=== PATIENT | female | born 1985 | race Caucasian/White ===

== ENCOUNTER 2025-02-21 18:40 | Emergency (ER) | payer MEDICAID, SELFPAY ==
[2025-02-21 19:46] VITALS: BP 102/66; PULSE 83; RESP 16; TEMP 36.8; O2SAT 100
--- NOTE | 2025-02-21 19:46 | EDNOTE_ITS ---
ED Dental RME/HPI General Chief complaint: Dental/Oral/Throat Stated complaint: Tooth infection Time Seen by Provider: 02/21/25 19:45 Arrival date/time: 02/21/25 18:40 RME / HPI RME / HPI Narrative: This section includes all my notes and documentations, including HPI, PE, and ED course. Vlad Spring MD HPI: 39 y/o female presents to ED c/o left-sided dental pain and swelling x several days. Denies any fever. No other complaints. ROS: All negative except as documented in HPI. Physical Exam: General: Alert and oriented. Eyes: Conjunctivae and lids clear. ENT: No nasal congestion. Pharynx normal. TM normal bilaterally. In the mouth, diffuse dental caries noted with left gum significantly edematous with erythema and tenderness. No fluctuant mass palpable. Neck: Supple. Lungs: No respiratory distress. Skin: Warm and dry. Neuro: Alert and oriented X 3. Made clinical diagnosis of infected dental caries. Treatment here included Tylenol with Codeine, Prednisone, Cleocin. Recommended outpatient dental care. Based on my best medical judgment, made decision no further evaluation or treatment indicated at this time. Patient understands and agrees to the discharge instructions customized and printed, see below. Discharge Instructions from Dr. Spring: --After evaluation, your dental pain is due to an underlying infection from many cavities. --Take clindamycin to help kill the germs causing your infection.? Unless we treat the underlying infection, pain medications won?t work.?? --Ibuprofen as needed.? Will work better with the antibiotics.? --Apply Lidocaine as needed.? Soak Lidocaine in a gauze and apply in the area of pain for 15 minutes to help the pain for a couple of hours.?? --Most importantly, see a dentist of your choice on 04/04/23 for definitive treatment you need not available in the ER.? You will need to call dental offices in all surrounding towns to find a dentist who can see you and treat you right away.? ?Seek immediate medical care with fever or with any concerns. Vlad Spring MD Related Data Previous Rx's ?Medication ?Instructions ?Recorded Hydrocodone/Acetaminophen * (NORCO 1 tab PO Q4H PRN PA IN #10 tabs 10/10/ 5/325 *) acetaminophen 300 mg-codeine 30 mg 2 tab PO Q8H PRN pa in #20 tabs 02/21/25 tablet clindamycin HCl 300 mg capsule 300 mg PO TID #30 caps 02/21/25 prednisone 20 mg tablet 40 mg PO BID 3 days #12 tabs 02/21/25 Allergies Allergy/AdvReac Type Severity Reaction Status Date / Time guaifenesin Allergy Unknown Verified 02/21/25 18:43 Penicillins Allergy Unknown Verified 02/21/25 18:43 Past Medical History Social History SMOKING STATUS: Light (< 1 pack/day) ED Exam Narrative Physical exam: Refer to HPI above Course Quality Measures none Orders Category Date Time Status ACETAMINOPHEN w/COD 300-30 [Tylenol w/Cod #3] Med 02/21/25 19:45 Discontinued 2 tab PO X1 ONE Clindamycin [Cleocin] Med 02/21/25 19:45 Discontinued 300 mg PO X1 ONE predniSONE Med 02/21/25 19:45 Discontinued 40 mg PO X1 ONE Vital Signs Vital signs: Vital Signs Temperature 98.3 F 02/21/25 19:46 Pulse Rate 83 02/21/25 19:46 Respiratory Rate 16 02/21/25 19:46 Blood Pressure 102/66 02/21/25 19:46 Pulse Oximetry (%) 100 02/21/25 19:46 Oxygen Delivery Method Room Air 02/21/25 19:46 Dental / Oral MDM Narrative MDM Narrative:: Scribe Attestation: Mary Kate Rodriguez am scribing for and in the presence of Dr. Spring. Provider Notation: Although this document has been carefully reviewed, there may still be some phonetic and other typographical errors.? These errors are purely grammatical due to imperfections in the software program and should not be construed in any way to? compromise the substance of the patient's medical care during this visit. 39 y/o female presents to ED c/o left-sided dental pain and swelling x several days. Denies any fever. No other complaints. Patient data External records reviewed:: [facility] previous records (No prior ED records available for review.) Clinical information provided by:: patient Social determinants that could affect healthcare access:: none Patient has the following chronic illnesses:: Smoker How is presenting disease/condition affected by chronic disease/condition?: exacerbated by Evaluation data The following diagnostics were reviewed and interpreted by me:: other (specify) (N/A) Lab and/or radiology exams considered but not ordered:: None Interpretation Summary: N/A Medications / Prescriptions Medications or Prescriptions considered but not ordered:: None Medication administrations:: Medication Administration History Discontinued Medications Acetaminophen/Codeine Phosphate (Acetaminophen W/Cod 300-30 Tablet) 2 tab PO X1 ONE Stop: 02/21/25 19:46 Clindamycin HCl (Clindamycin 150 Mg Capsule) 300 mg PO X1 ONE Stop: 02/21/25 19:46 Prednisone (Prednisone 20 Mg Tablet) 40 mg PO X1 ONE Stop: 02/21/25 19:46 Tylenol with Codeine, Prednisone, Cleocin Consultations Consultation(s) initiated? (list below): No Diagnosis Dental Differential Diagnosis: gingival abscess, dental caries, toothache, dental abscess, fracture of tooth and aphthous ulcer Most likely diagnosis given after review of the tests above:: Infected dental caries Admission Indicated Admission indicated?: not indicated Explain why admission is indicated or not indicated:: Recommend outpatient dental care, there was no indication for admission.? Admission Request Was there a request for admission?: No Disposition Plan Disposition Plan: Discharge Discharge Attestation Discharge Attestation: The patient and all family members were given an opportunity to ask questions and understood the discharge instructions. Discharge instructions specifically effects, indications for sooner follow up or return to the emergency department, and the expected course of current diagnosis. Patient condition: Stable Discharge Plan Plan Patient Disposition: HOME (Self Care) Prescriptions/Referrals Prescriptions/Med Rec: New acetaminophen-codeine 300-30 mg tablet 2 tab PO Q8H MDD 6 PRN (Reason: pain) Qty: 20 0RF clindamycin HCl 300 mg capsule 300 mg PO TID Qty: 30 0RF prednisone 20 mg tablet 40 mg PO BID 3 Days Qty: 12 0RF Taper: Prednisone Taper 20 mg DAILY for 2 Days and 0 Hour 10 mg DAILY for 2 Days and 0 Hour 5 mg DAILY for 7 Days and 0 Hour No Action Hydrocodone/Acetaminophen * (NORCO 5/325 *) 1 TAB tablet 1 tab PO Q4H PRN (Reason: PAIN) Qty: 10 0RF Rx Instructions: FOR PAIN Problem List Clinical Impression: Infected dental caries Patient/Caregiver Discharge Instructions Discharge Activity: activity as tolerated Education Materials: ED Dental Abscess, ED Tooth Abscess Additional Instructions: Discharge Instructions from Dr. Spring: --After evaluation, your dental pain is due to an underlying infection from many cavities. --Take clindamycin to help kill the germs causing your infection.? Unless we treat the underlying infection, pain medications won?t work.?? --Ibuprofen 400 mg every 6-8 hours today and tomorrow to decrease inflammation then as needed. --Prednisone to help decrease inflammation. --Most importantly, see a dentist of your choice on 02/23/2025 for definitive treatment you need not available in the ER.? You will need to call dental offices in all surrounding towns to find a dentist who can see you and treat you right away.? ?Seek immediate medical care with fever or with any concerns. Print Language: Occitan Stand Alone Forms: Virginie Award Info., Patient Portal Info Letter
[2025-02-21] MEDS: ACETAMINOPHEN w/COD 300-30 TABLET 2 TAB PO (20:39)
[2025-02-21] MEDS: predniSONE 20 MG TABLET 40 MG PO (20:40)
[2025-02-21] MEDS: CLINDAMYCIN 150 MG CAPSULE 300 MG PO (20:41)
== END 2025-02-21 20:46 | disposition home or self-care (01) ==
LOC: SERX 20:58
PROVIDERS: Emergency Provider Emergency Medicine
DX: K04.7 Periapical abscess without sinus (principal); K02.9 Dental caries, unspecified
CPT/HCPCS: 99282; J7512; A9270